=== PATIENT | female | born 1965 | race Caucasian/White ===

== ENCOUNTER → 2017-02-20 | Day surgery (SDC) | payer OTHER ==
[~2017-02-20] VITALS: Ht 175.3 cm; Wt 103.0 kg
[2017-02-20] VITALS (12 sets, daily range): BP systolic 100–125; BP diastolic 54–76; PULSE 60–79; RESP 12–17; O2SAT 93–98
[~2017-02-20] MED LIST: ADAL40KI SQ; AZAT50TA6 PO; Bupivacaine-MPF 0.25%/EPI 30 mL Inj INJ ONE; Clindamycin 900 mg/50 mL D5W IV ONE; Dexamethasone 4 mg/mL Inj INTRARTICU ONE; Dexamethasone 4 mg/mL Inj IVPUSH PRN; Dexamethasone 4 mg/mL Inj ONE; EPHEDrine Sulfate 50 mg/mL Inj IVPUSH PRN; Glycopyrrolate 0.2 MG/ML 1mL Inj ONE; HYDROmorphone 1 mg/mL Inj IVPUSH PRN; HYDROmorphone 1 mg/mL Inj ONE; Lactated Ringer's 1,000 ML IV SCH; Lactated Ringer's 500 ML IV PRN; MetoCLOpramide 5 mg/mL 2 mL Inj IVPUSH PRN; MetoCLOpramide 5 mg/mL 2 mL Inj ONE; Ondansetron 2 mg/mL 2 mL Inj IVPUSH PRN; Ondansetron 2 mg/mL 2 mL Inj ONE; Phenylephrine 10,000 mCg/mL Inj IVPUSH PRN; Propofol 10,000 mCg/mL 20 mL Inj ONE; fentaNYL-PF 50 mCg/mL 2 mL Inj IVPUSH PRN; oxyCODONE-Acetamin 5-325 mg Tablet PO PRN
[2017-02-20] MEDS: Lactated Ringer's 1,000 ML IV SCH ×2 (05:28→07:50)
--- NOTE | 2017-02-20 07:43 | PCM.HPANE ---
Patient Data Date of Service: Feb 20, 2017 Surgeon Admitting Provider: Attending Provider:Pravin Johnson MD Primary Care Physician:Wang Bradshaw MD Other Provider:Amber Mendenhall Anesthesia Reason for Visit Left Lateral Meniscal Tear Ht/WT & BMI Height (Feet): 5 Height (Inches): 9.00 Weight (Kilograms): 103.0 Body Mass Index 33.00 Allergies Coded Allergies: Penicillins (Verified Allergy, Intermediate, anaphylaxis, 02/13/17) Past Anesthesia History Anesthesia History: Denies:: Abnormal Airway, Anesthesia Reactions, Difficult Intubation, Fam Anesthesia Reaction, Fam Malignant Hypertherm, Malignant Hyperthermia Diabetes History Hx Diabetes?: Yes MRSA MRSA: No Medications Hypertension Medication: No Home Meds Incl Beta Mary: No Reported Medications Azathioprine (Imuran)50 Mg [id number] Mg PO DAILY 02/13/17 Adalimumab (Humira)40 Mg/0.8 Ml Kit40 Mg SQ [id number] 02/13/17 Discontinued Reported Medications Adalimumab (Humira)40 Mg/0.8 Ml Pen.[id number] Mg SQ WEEKLY 11/27/13 Azathioprine (Azasan)100 Mg [id number] Mg PO DAILY 11/27/13 Hydrochlorothiazide 25 Mg Fargsb82 Mg PO DAILY 30 Days Ref 0 11/27/13 History History of ENT Problems?: No HEENT History: Denies:: Abnormal Airway Cataracts Difficult Intubation Dysphagia Glaucoma Hearing Problem Sinus Problem TMJ Denture Type: None Teeth Condition: Within Normal Limits Hx of Heart Problems?: No Cardiovascular History: Denies:: Abdominal Aortic Aneurism Cardiac Surgery Chest Pain Congestive Heart Failure Coronary Artery Disease Edema Heart Murmur Hypertension Irregular Heartbeat Pacemaker Hx of Respiratory Problem?: No Respiratory History: Denies:: Asthma COPD Emphysema Oxygen Administration Pneumonia Tuberculosis Use of C-PAP Machine Hx Neurologic Problems?: No Neurological History: Denies:: CVA Dizziness Headaches Multiple Sclerosis Parkinson's Disease Seizures Hx of GI Problems?: Yes Gastrointestinal History: Denies:: Gastroesphageal Reflux Hx of Problems?: Yes Genitourinary History: Denies:: HX of Hemodialysis Kidney Stones HX of Peritoneal Dialysis: No Other Pertinent History: left nephrectomy cancerous tumor 3 years ago Female Hx: Denies:: Currently Problems with Breasts? Skin History: Denies:: History Skin Disorders? Pressure Ulcers Hx Musculoskeletal Problems?: Yes Musculoskeletal History: Positive for:: Musculoskeletal Trauma (left knee current admission problem) Denies:: Back Injury Degenerative Joint Fibromyalgia Joint Replacement Osteoarthritis Systemic Lupus Hx of Psycho/Social Problems?: No Psycho Social History: Denies:: Anxiety Bipolar Disorder Hx Depression Hx Surgeries?: Yes (APPY, T&A, left nephrectomy ) Hx Any Other Health Problems?: Yes Other History: Positive for:: Hospitalization Denies:: Cancer (renal ca) Endocrine Disease Thyroid Disease History Blood Transfusions: Positive for:: Accept Blood Products? 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- none since) Smoking Status: Current Some Day Smoker (former 20+ year smoker, currently now occasional cigar) Have You Smoked inLast 12 mo: YesApprox How Many Cigarettes/day: quit smoking 6 years ago, random cigar user Stop/Bang Treated for Sleep Apnea?: No Do You Have a CPAP Machine?: No S-Snoring: Do You Snore Loudly: No T-Tired: feel tired, fatigued: No O-Obsered: Observed not breath: No P-Blood Pressure: treated: No B- Body Mass Index > 35 kg/m2: No A- Age over 50: Yes N- Neck Large Circumference: No G- Gender Male: No DORITA Total Score: 1 DORITA Risk Assessment: Low Risk, <3 Yes Risk Assessment Category Category 1A: Patient has history of documented sleep apnea, and HAS NOT received any narcotic, sedative or anesthesia administration during this stay. Category 1B: Patient has history of documented sleep apnea, and HAS received any narcotic , sedative or anesthesia administration during this stay Category 2: Patient has SUSPECTED Obstructive Sleep Apnea, and HAS received any narcotic , sedative or anesthesia administration during this stay. Category 3: Patient has SUSPECTED Obstructive Sleep Apnea and HAS NOT received narcotic, sedative or anesthesia administration during this stay. Category 4: Outpatient in Procedural Areas with known sleep apnea or who screen positive for High Risk via the STOP/BANG questionnaire. Exam Exam Vital Signs Vital Signs Date Time Temp Pulse Resp B/P Pulse Ox O2 Delivery O2 Flow Rate FiO2 02/20/17 06:58 35.9 79 16 125/76 98 Room Air General Appearance: Alert, Oriented X3, Cooperative, No Acute Distress HEENT/AIRWAY: MP 1, Neck Movement (FROM), Mouth Opening (>3), Other (tmd>3) Lungs: Normal Air Movement Heart: Exam Unremarkable, Regular Rate/Rhythm, Normal S1, No Murmurs/Rubs/ Gallops Additional Information clubbing of digits Meds/Labs/Diagnostics Admission Meds Current Medications Lactated Ringer's (Lr) 1,000 ml @ 120 mls/hr [id number] IV Last administered on t 05:28; Start 02/20/17 at 05:00; Stop 02/20/17 at 13:19 Plan Impression Patient chart reviewed, patient interviewed and anesthestic plan with risks, benefits, and alternatives discussed, and informed consent obtained. NPO per Anesth. Guidelines: Yes ASA Physical Status: ASA2 Mod Systemic Disease Anesthetic Plan: GA Bene/Risks/Altern/Consents: Yes HP Complete Prior to Induction: Yes Richard Selby MD Feb 20, 2017 07:43
--- NOTE | 2017-02-20 10:58 | PCM.ANEP1 ---
Post Anesthesia PACU Phase 1 Assessment Date of Service: Feb 20, 2017 Vital Signs Vital Signs Date Time Temp Pulse Resp B/P Pulse Ox O2 Delivery O2 Flow Rate FiO2 02/20/17 10:01 68 16 115/62 95 Room Air 02/20/17 09:41 68 16 117/66 98 Room Air 02/20/17 09:30 60 12 100/54 96 Room Air 02/20/17 09:25 36.7 64 12 109/64 97 Room Air 02/20/17 09:20 65 15 110/71 98 Room Air 02/20/17 09:15 64 16 108/67 94 Room Air 02/20/17 09:10 65 17 119/59 93 Room Air 02/20/17 09:00 64 16 107/65 93 Room Air 02/20/17 08:55 65 16 102/66 98 Room Air 02/20/17 08:50 69 16 112/59 96 Simple Mask 8 02/20/17 08:45 36.6 71 13 117/61 96 Simple Mask 8 02/20/17 06:58 35.9 79 16 125/76 98 Room Air Anesthetic Administered: GA Level of Alertness: Awake, talking JC's with Equal Strength: Yes Pain: No Pain Scale Score: 0 Nausea or Vomiting: No CV Function & Hydration Stable: Yes Airway Device: none Oxygen Delivery: Simple Mask Lungs: Normal Air Movement Summary 02/20/17 10:01 68 16 115/62 95 Room Air PACU Phase 2 Assessment Complications: No Follow up Care: N/A Patient Instructions Provided: N/A Richard Selby MD Feb 20, 2017 10:58
--- NOTE | 2017-02-20 13:56 | OP ---
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 POSTOPERATIVE DIAGNOSIS(ES): Internal derangement, left knee. PROCEDURE: Left knee arthroscopic lateral meniscectomy and medial chondroplasty of the left knee. SURGEON: Pravin Johnson M.D. DIRECTOR PHARMACOLOGY: None. COMPLICATIONS: None. INDICATIONS: This woman has had progressive disability symptoms uncontrolled by conservative treatment. She elects for arthroscopy with repair as indicated. She understands and accepts the limitations of arthroscopy as well as the potential for risks and complication. FINDINGS OF SURGERY: Revealed diffuse synovitis in both the medial and lateral gutters. Articular cartilage was intact on the lateral side and there was a small posterior horn lateral meniscal tear. ACL was intact. Articular cartilage was intact on the tibial plateau on the medial side but there was a diffuse large grade 2 condylar lesion of the medial femoral condyle. Following the diagnostic arthroscopy, attention was turned to the medial compartment were partial chondroplasty was performed removing only grossly loose flaps of articular cartilage. Following this, attention was turned to the lateral compartment where baskets and a meniscal resector blade were utilized to perform a partial lateral meniscectomy removing all unstable tissue. Wounds were irrigated with sterile irrigant and the portals were closed with 3-0 nylon. A sterile dressing was applied. The patient was taken to the recovery room in stable condition. She tolerated the procedure well. There were no complications.
== END | disposition home or self-care (01) ==
LOC: SAS 06:37
PROVIDERS: ATTEND Orthopaedic Surgery
DX: M23.252 Derangement of posterior horn of lateral meniscus due to old tear or injury, left knee (principal); M23.42 Loose body in knee, left knee; K50.90 Crohn's disease, unspecified, without complications; Z90.5 Acquired absence of kidney
CPT/HCPCS: 29881; J1100; J1170; J1885; J2250; J2405; J2704; J2765; J3010; J3490; J7120

== ENCOUNTER 2017-02-28 12:15 | Emergency (ER) | payer OTHER ==
[~2017-02-28] VITALS: Ht 177.8 cm; Wt 103.0 kg
[~2017-02-28 12:15] MED LIST changes: -Bupivacaine-MPF 0.25%/EPI 30 mL Inj INJ ONE; -Clindamycin 900 mg/50 mL D5W IV ONE; -Dexamethasone 4 mg/mL Inj INTRARTICU ONE; -Dexamethasone 4 mg/mL Inj IVPUSH PRN; -Dexamethasone 4 mg/mL Inj ONE; -EPHEDrine Sulfate 50 mg/mL Inj IVPUSH PRN; -Glycopyrrolate 0.2 MG/ML 1mL Inj ONE; -HYDROmorphone 1 mg/mL Inj IVPUSH PRN; -HYDROmorphone 1 mg/mL Inj ONE; -Lactated Ringer's 1,000 ML IV SCH; -Lactated Ringer's 500 ML IV PRN; -MetoCLOpramide 5 mg/mL 2 mL Inj IVPUSH PRN; -MetoCLOpramide 5 mg/mL 2 mL Inj ONE; -Ondansetron 2 mg/mL 2 mL Inj IVPUSH PRN; -Ondansetron 2 mg/mL 2 mL Inj ONE; -Phenylephrine 10,000 mCg/mL Inj IVPUSH PRN; -Propofol 10,000 mCg/mL 20 mL Inj ONE; -fentaNYL-PF 50 mCg/mL 2 mL Inj IVPUSH PRN; -oxyCODONE-Acetamin 5-325 mg Tablet PO PRN
[2017-02-28 12:18] VITALS: BP 112/79; PULSE 104; RESP 18; O2SAT 97
--- NOTE | 2017-02-28 12:57 | ED.REPORT ---
HPI-General Illness Date of Service Feb 28, 2017 ED Provider: Pedro Pablo Menendez PA-C Nhung is a 51-year-old female with a recent history of arthroscopic left knee surgery presenting to the emergency department to rule out DVT. Patient reports pain in her left calf over the last day or so, cramping, moderate in severity. Denies redness, swelling, chest pain, shortness of breath, history of DVT. Referred by her surgeon, Dr. Johnson. Nursing Notes Stated Complaint: BLOOD CLOTS IN LEFT LEG Chief Complaint: General Complaint Nursing Notes Reviewed: Yes Allergies: Coded Allergies: Penicillins (Verified Allergy, Intermediate, anaphylaxis, 02/13/17) Scheduled Adalimumab (Humira) 40 Mg/0.8 Ml Kit 40 MG SQ [id number] Azathioprine (Imuran) 50 Mg Tablet 150 MG PO DAILY Enoxaparin Sodium (Enoxaparin Sodium) 100 Mg/1 Ml Syringe 100 MG SUBQ Q12 Warfarin Sodium (Warfarin Sodium) 5 Mg Tablet 5 MG PO DAILY General Time Seen by MD: 12:38 Chief Complaint Other (left calf pain) Past Medical History Past Medical History Crohn's Smoking History Current Some Day Smoker Review of Systems Negative unless stated otherwise in history of present illness Full Review of Systems Constitutional: Denies: Fever Eyes: Denies: Blurred bilateral Ears / Nose / Throat: Denies: Earache bilateral, Sore throat Respiratory: Denies: Shortness of breath Cardiovascular: Denies: Chest pain GI: Denies: Abdominal pain Female: Denies: Dysuria Musculoskeletal: Reports: Extremity swelling Skin: Reports Swelling, Denies Rash Allergy / Immune: Denies: Itching Neurologic: Denies: Numbness Complete sys rev & neg: except as marked. Physical Exam General: Well appearing, well developed, well nourished, no acute distress. Head: Atraumatic, normocephalic. Eyes: No scleral icterus or injection. No discharge. Vision grossly intact. ENT: Voice clear, hearing grossly intact. Respiratory: Regular rate and rhythm. Breath sounds present, clear to auscultation and equal bilaterally. No respiratory distress. No increased work of breathing, speaks in complete sentences. Cardiovascular: Regular rate and rhythm, 1/6 systolic murmur, loudest at left upper sternal border. No pedal edema. Gastrointestinal: Abdomen flat and non-tender without guarding or rebound. Bowel sounds normoactive. Skin: Warm and dry. Left leg: Incisions from laparoscopic knee surgery are clean and dry with no dehiscence. No redness, swelling, heat. Calf diameter roughly equal left to right. Posterior calf is tender, positive Homans sign. DP and PT pulses 2+. Neurological: Grossly nonfocal. Psychological: Alert and oriented. Speech appropriate, linear and logical. Behavior appropriate. Vital Signs Vital Signs Date Time Temp Pulse Resp B/P Pulse Ox O2 Delivery O2 Flow Rate FiO2 02/28/17 14:10 81 14 113/70 96 Room Air 02/28/17 12:18 37.1 104 18 112/79 97 Room Air Mild tachycardia Interpretation & Diagnostics US Soft Tissue/Musculoskeletal PROCEDURE: US VEINOUS LEG DUPLEX UNILATERAL, LEFT INDICATIONS: left calf swelling FINDINGS: The deep veins from the level of the common femoral vein and popliteal vein are normally compressible, and free of intraluminal thrombus. Color and pulse Doppler demonstrate normal phasic intraluminal flow. Thrombus is present within the anterior and posterior tibial veins. IMPRESSION: Calf vein thrombosis as detailed above. If clinically warranted, a repeat ultrasound study could be performed in one week to assess for proximal clot propagation. Findings were telephoned to Dr. Menendez by the brine tank tender at 1355 hrs. on 02/28/17. Re-Eval/Medical Decision Med Decision/Clinical Course 51-year-old female presents to emergency department for evaluation for DVT at the request of her orthopedic surgeon. Recent history of arthroscopic surgery. Complains of left calf pain, denies swelling. Physical examination reveals calf tenderness and positive Homans sign. No appreciable swelling. Vital signs show mild tachycardia in triage that is resolved by examination. Ultrasound reveals clots in the calf veins, popliteal vein is patent. Discusses fine with Dr. Hall, who evaluated examine the patient. He advises anticoagulation and primary care follow-up. The patient's HAS-BLED score is 0. I discussed the case with our pharmacist who recommends Lovenox bridging to warfarin. She performs training with the patient. Discharged with a one-week supply of Lovenox as well as warfarin. Advise primary care follow-up in 3 days. Provide emergency return precautions. Patient verbalizes understanding of and consent to plan. Discharge & Departure Primary Impression: Venous thrombosis of lower extremity Disposition: Home Discharge Condition All VS Reviewed: Yes Condition: Stable Patient Instructions: Deep Venous Thrombosis (ED) Additional Instructions: Evaluation in the emergency department for left calf pain includes interview, physical examination and ultrasound which reveal a blood clot in the mid sized veins of your calf. We will treat this with anticoagulation. This involves injections of Lovenox as well as initiation of treatment with warfarin. You have been instructed in this by our pharmacist. We can discontinue the use of Lovenox once there is enough warfarin and your system to prevent further clotting. Follow-up with your primary care provider in 3 days to check the level of warfarin in your blood. Return to the emergency Department for any new or worsening symptoms including pain in your chest, cough, shortness of breath. Referrals: Wang Bradshaw MD (PCP) EDSupervising Provider for APC: Matthew Hall MD Attending Statement I saw and evaluated the patient in conjunction with the PA. I agree with the plan and findings as documented above. In brief, 51-year-old female presenting to the ED for evaluation of leg swelling concerning for a clot. Well appearing, no acute distress. Nonlabored respirations. Good peripheral perfusion. Mildly tachycardic in triage. No dyspnea or chest pressure, nor chest pain. Ultrasound findings as above. Given this, we will plan to initiate anticoagulation with Lovenox; she is to see her primary doctor in the next several days for further evaluation and management, including discussing further anticoagulation including warfarin. Plan discharge home w/ careful return precautions. Patient agreeable to plan as stated, no further questions. copies to: Wang Bradshaw MD; Pravin Johnson MD, William B MD Feb 28, 2017 12:57 Pedro Pablo Menendez PA-C Feb 28, 2017 13:16
[2017-02-28 14:10] VITALS: BP 113/70; PULSE 81; RESP 14; O2SAT 96
--- NOTE | 2017-02-28 14:26 | DRSVH ---
PROCEDURE: US VEINOUS LEG DUPLEX UNILATERAL, LEFT INDICATIONS: left calf swelling TECHNIQUE: Real-time imaging, as well as color and pulse Doppler interrogation, were performed of the lower extr emity deep veins from the inguinal ligament to the popliteal fossa. COMPARISON: None. FINDINGS: The deep veins from the level of the common femoral vein and popliteal vein are normally c ompressible, and free of intraluminal thrombus. Color and pulse Doppler demonstrate normal phasic in traluminal flow. Thrombus is present within the anterior and posterior tibial veins. IMPRESSION: Calf vein thrombosis as detailed above. If clinically warranted, a repeat ultrasound study could be p erformed in one week to assess for proximal clot propagation. Findings were telephoned to Dr. Menendez by the sewer separation designer at 1355 hrs. on 02/28/17. Dictated by: Marvin Contreras M.D. on 02/28/2017 at 14:21 Approved by: Marvin Contreras M.D. on 02/28/2017 at 14:24
[2017-02-28] MEDS ORDERED: WARF5TAB7 PO (14:39)
[2017-02-28] MEDS ORDERED: ENOX100D4 SUBQ (14:39)
== END 2017-02-28 15:03 | disposition home or self-care (01) ==
LOC: SED 12:15
DX: I82.492 Acute embolism and thrombosis of other specified deep vein of left lower extremity (principal); F17.200 Nicotine dependence, unspecified, uncomplicated; Z90.89 Acquired absence of other organs; Z87.19 Personal history of other diseases of the digestive system; Z98.890 Other specified postprocedural states; Z90.5 Acquired absence of kidney; Z79.01 Long term (current) use of anticoagulants; Z88.0 Allergy status to penicillin
CPT/HCPCS: 93970; 96372; 99284; J1650